=== PATIENT | female | born 1955 | race Caucasian/White ===

== ENCOUNTER 2018-06-27 10:04 | Outpatient (CLI) | payer OTHER ==
--- NOTE | 2018-06-27 11:59 | BD ---
DEXA BONE DENSITY STUDY: HISTORY: Postmenopausal. LUMBAR SPINE BMD (g/cm2) T-SCORE L1 1.050 +0.5 L2 1.156 +1.2 L3 1.218 +1.2 L4 1.165 +0.9 TOTAL 1.151 +0.9 LEFT FEMORAL NECK 0.792 -0.5 TOTAL 1.001 +0.5 IMPRESSION: Normal bone mineral density of the lumbar spine and left femoral neck. POS: [facility]
--- NOTE | 2018-07-06 12:59 | MMO ---
Bilateral MAMMO Bilat Screen DDI. CLINICAL HISTORY: Patient is 63 years old and is seen for screening. The patient has no family history of breast cancer. The patient has no personal history of cancer. VIEWS: The views performed were: bilateral craniocaudal; bilateral mediolateral oblique; and bilateral exaggerated craniocaudal. FILMS COMPARED: The present examination has been compared to prior imaging studies performed at [facility] on 06/06/2012, 11/15/2013 and 04/06/2015, and at [facility] on 05/25/2016. This study has been interpreted with the assistance of computer-aided detection. MAMMOGRAM FINDINGS: The breasts are heterogeneously dense, which could obscure a lesion on mammography. There are no suspicious masses, suspicious calcifications, or new areas of architectural distortion. IMPRESSION: THERE IS NO MAMMOGRAPHIC EVIDENCE OF MALIGNANCY. A ROUTINE FOLLOW-UP MAMMOGRAM IN 1 YEAR IS RECOMMENDED. ACR BI-RADS Category 1 - Negative MAMMOGRAPHY NOTE: 1. A negative mammogram report should not delay a biopsy if a dominant of clinically suspicious mass is present. 2. Approximately 10% to 15% of breast cancers are not detected by mammography. 3. Adenosis and dense breasts may obscure an underlying neoplasm.
== END 2018-06-27 10:05 | disposition home or self-care (01) ==
LOC: BICMAMMO 10:04
PROVIDERS: ATTEND Family Medicine
DX: Z12.31 Encounter for screening mammogram for malignant neoplasm of breast (principal); Z13.820 Encounter for screening for osteoporosis; Z79.890 Hormone replacement therapy
CPT/HCPCS: 77067; 77080

== ENCOUNTER 2018-08-06 08:48 | Outpatient (CLI) | payer OTHER ==
[2018-08-06] MEDS ORDERED: Gadobenate Dimeglumine 529 MG/1 ML (20ML VIAL) ONE (11:58)
--- NOTE | 2018-08-06 12:30 | MRI ---
MRI BRAIN WITH AND WITHOUT CONTRAST: HISTORY: 63-year-old female with migraines without aura, and 2 episodes of altered mental status, confusion. TECHNIQUE: Multiple sequences obtained in axial, sagittal, and coronal planes; pre and post IV injection of gado linium-based contrast agent: 13 mL MultiHance. FINDINGS: The ventricles are normal in size and configuration. There is no restricted diffusion, abnormal intr aaxial enhancement, mass, midline shift or any other mass effect, recent intraaxial hemorrhage, or ex traaxial fluid collection. There are a few scattered punctate T2-hyperintensities in the cerebral whi te matter consistent with mild chronic ischemic white matter changes due to mild microvascular athero sclerosis. IMPRESSION: 1. Mild chronic ischemic white matter changes, typical for this age group. 2. Otherwise negative. jn[] POS: [facility]
== END 2018-08-06 08:49 | disposition home or self-care (01) ==
LOC: BICMRI 08:48
DX: G43.009 Migraine without aura, not intractable, without status migrainosus (principal); H81.49 Vertigo of central origin, unspecified ear; H82.9 Vertiginous syndromes in diseases classified elsewhere, unspecified ear
CPT/HCPCS: 70553; 82565; A9577

== ENCOUNTER 2020-04-17 08:14 | Outpatient (CLI) | payer MEDICARE, OTHER | END 2020-04-17 08:15 | disposition home or self-care (01) | LOC: BICMAMMO 08:14 | PROVIDERS: ATTEND Family Medicine | DX: Z12.31 Encounter for screening mammogram for malignant neoplasm of breast (principal) | CPT/HCPCS: 77063; 77067 ==